=== PATIENT | male | born 1960 | race African-American/Black ===

== ENCOUNTER 2022-11-30 11:08 | Inpatient (IN) | payer OTHER ==
[~2022-11-30 11:08] MED LIST: Iopamidol 300 61% 100 ML VIAL FS ONE
[2022-11-30] MEDS ORDERED: Acetaminophen 325 MG TAB PO PRN (11:28)
[2022-11-30] MEDS ORDERED: Senokot S 8.6-50 MG TAB PO PRN (11:28)
[2022-11-30] MEDS ORDERED: Morphine 2 MG/ML VIAL SLOW IVP PRN (12:00)
[2022-11-30] MEDS ORDERED: Dextrose 5% in Water 1,000 ML IV PRN (12:03)
[2022-11-30] MEDS ORDERED: HumaLOG 300 UNITS/3 ML VIAL SC PRN (12:03)
[2022-11-30] MEDS ORDERED: Dextrose 50% Abboject 50 ML SYRINGE SLOW IVP PRN (12:03)
[2022-11-30] MEDS ORDERED: Potassium Chloride 20 MEQ TAB PO SCH (12:30)
[2022-11-30] MEDS: Morphine 4 MG/ML VIAL SLOW IVP PRN ×3 (12:40→21:17)
[2022-11-30] MEDS: NS 0.9% w/ 40 MEQ KCL 1,000 ML IV SCH (12:43)
[2022-11-30 12:53] VITALS: BMI 27.8
[2022-11-30] MEDS ORDERED: FLU VACC QS2022-23(6MOS UP)/PF 60 MCG/0.5 ML SYRINGE IM ONE (13:30)
[2022-11-30 15:18] LABS: Magnesium 2.1 mg/dL (1.6-2.6)
[2022-11-30 16:23] LABS: SARS-CoV-2 NAA Rapid Test Not Detected (NotDetected)
[2022-11-30] MEDS ORDERED: Cefepime 2 GM in Sodium Chloride 0.9% 100 ML IVPB SCH (21:00)
[2022-11-30] MEDS: Vancomycin HCl 1 GM in Sodium Chloride 0.9% 250 ML 250 ML IVPB SCH (21:09)
[2022-11-30] MEDS ORDERED: Meropenem 1 GM in Sodium Chloride 0.9% 100 ML IVPB SCH (22:00)
[2022-12-01] MEDS: NS 0.9% w/ 40 MEQ KCL 1,000 ML IV SCH (01:15)
[2022-12-01] MEDS: Morphine 4 MG/ML VIAL SLOW IVP PRN ×2 (03:25→09:18)
[2022-12-01 03:58] LABS: Hemoglobin 10.3 g/dL (13.5-17.5); MDiff Complete? YES; Mean Corpuscular HGB CONC 32.6 g/dL (32.0-36.0); Mean Corpuscular Hemoglobin 27.6 pg (27.0-33.0); Mean Corpuscular Volume 84.7 fl (81.2-95.1); Mean Platelet Volume 8.9 fl (7.4-10.4); Platelet Count 541 10x3/uL (150-450); RBC Distribution Width 14.8 % (11.5-14.5); Red Blood Cell (RBC) Count 3.73 10x6/uL (4.32-5.72); White Blood Cell (WBC) Count 39.2 10x3/uL (3.5-10.5)
[2022-12-01 03:59] LABS: ALT (SGPT) 20 U/L (8-55); AST (SGOT) 22 U/L (5-34); Albumin 2.5 g/dL (3.4-4.8); Alkaline Phosphatase 106 U/L (40-110); Anion Gap 13 mmol/L (10-20); BUN (Urea Nitrogen) 11 mg/dL (8.4-25.7); Bilirubin, Total 0.5 mg/dL (0.2-1.2); Calc. Creatinine Clearance 115 mL/min (70-130); Calcium 7.8 mg/dL (7.8-10.44); Carbon Dioxide 16 mmol/L (23-31); Chloride 104 mmol/L (98-107); Estimated GFR 98; Globulin 4.8 g/dL (2.4-3.5); Glucose 99 mg/dL (80-115); Potassium 4.1 mmol/L (3.5-5.1); Protein, Total 7.3 g/dL (5.8-8.1); Sodium 129 mmol/L (136-145)
[2022-12-01 04:44] LABS: Anisocytosis SLIGHT = 6-15 cells (100X) (0-5/hpf); Band 9 % (5-11); Eosinophils 1 % (0-10); Lymphocytes 4 % (21-51); Monocytes 2 % (0-10); Neutrophil 84 % (42-75); Toxic Granulation SLIGHT
[2022-12-01 04:45] LABS: Platelet Morphology Comment Appears Increased
[2022-12-01] MEDS ORDERED: Meropenem 1 GM in Sodium Chloride 0.9% 100 ML IVPB SCH (06:00)
[2022-12-01 08:38] LABS: HIV (1/2) Antibody/Antigen Non-Reactive (NonReactive); HIV 1/2 INDEX 0.12 S/CO (<1.00)
[2022-12-01 08:46] LABS: HBSAg Index 0.19 S/CO (0-0.99); Hep B Surf Ag Non-Reactive S/CO (NonReactive)
[2022-12-01] MEDS ORDERED: Lisinopril 20 MG TAB PO SCH (09:00)
[2022-12-01] MEDS: Vancomycin HCl 1 GM in Sodium Chloride 0.9% 250 ML 250 ML IVPB SCH (09:20)
[2022-12-01 12:23] VITALS: BP 181/97; TEMP 98.7
[2022-12-01 12:32] LABS: Syphilis Antibody REACTIVE (Nonreactive); Syphilis Antibody Index 5.86 S/CO (<1.00 Non-Reactive)
[2022-12-01 13:08] LABS: Hemoglobin A1c 5.8 % (4.0-6.0)
[2022-12-01 14:33] LABS: HBCM Index 0.13 S/CO (0-0.79); Hep A IgM AB Non-Reactive (NonReactive); Hep A IgM S/CO 0.31 S/CO (0-0.79); Hepatitis B Core IgM Abs Non-Reactive (NonReactive)
[2022-12-01 14:39] LABS: Hep C IgG Ab Reflex HepC Qnt (NonReactive)
== END 2022-12-01 16:32 | disposition short-term general hospital (02) | DRG 872 ==
LOC: CSHTELE 11:08
PROVIDERS: ADMIT Internal Medicine; ATTEND Internal Medicine
DX: A41.9 Sepsis, unspecified organism (principal); L03.114 Cellulitis of left upper limb; L03.211 Cellulitis of face; K12.2 Cellulitis and abscess of mouth; E87.1 Hypo-osmolality and hyponatremia; E87.20 Acidosis, unspecified; M00.9 Pyogenic arthritis, unspecified; I96 Gangrene, not elsewhere classified; L03.113 Cellulitis of right upper limb; I10 Essential (primary) hypertension; R73.9 Hyperglycemia, unspecified; E87.6 Hypokalemia; K02.9 Dental caries, unspecified; R31.9 Hematuria, unspecified; D64.9 Anemia, unspecified; Z20.822 Contact with and (suspected) exposure to COVID-19; Z98.890 Other specified postprocedural states; Z79.899 Other long term (current) drug therapy
CPT/HCPCS: 36415; 36416; 70487; 80053; 80074; 83036; 83605; 83735; 85025; 86593; 86780; 87070; 87077; 87186; 87205; 87389; 87522; 93306; J1650; J2185; J2270; J3370; J3480; J3490; J7050; Q9967; U0002